=== PATIENT | male | born 1940 | race Caucasian/White ===

== ENCOUNTER 2018-12-08 07:29 | Emergency (ER) | payer MEDICARE, OTHER ==
--- NOTE | 2018-12-08 07:49 | EDM.PDOC ---
<Dedra Loo - Last Filed: 12/08/18 09:04> ED HPI GENERAL MEDICAL PROBLEM - General Chief Complaint: Respiratory Problem Stated Complaint: AMBULANCE Time Seen by Provider: 12/08/18 08:00 - Related Data Allergies Allergy/AdvReac Type Severity Reaction Status Date / Time venom-honey bee Allergy Swollen Verified 12/08/18 10:24 [bee venom (honey bee)] Tongue venom-wasp protein Allergy Swollen Verified 12/08/18 10:24 [wasp venom protein] Tongue Home Meds: Home Meds Chlorthalidone 25 mg PO DAILY 05/16/15 [History] EPINEPHrine [Epipen] 0.3 ml SQ ASDIRECTED 05/16/15 [History] Furosemide 20 mg PO DAILY 05/16/15 [History] Levothyroxine 25 mcg PO ACBREAKFAST 05/16/15 [History] Potassium Chloride [Klor-Con M10] 40 meq PO QID 05/16/15 [History] Folic Acid 1 mg PO DAILY 06/14/18 [History] Levofloxacin 500 mg PO DAILY 06/14/18 [History] Ondansetron HCl [Ondansetron] 8 mg PO ASDIRECTED PRN 06/14/18 [History] Prochlorperazine Maleate [Compazine] 10 mg PO DAILY PRN 06/14/18 [History] atorvaSTATin [Lipitor] 10 mg PO DAILY 06/14/18 [History] Course - Vital Signs Last Recorded V/S: Last Vital Signs Temp 37.3 C 12/08/18 07:53 Pulse 102 H 12/08/18 07:53 Resp 20 12/08/18 07:53 BP 99/58 L 12/08/18 07:53 Pulse Ox 100 12/08/18 07:53 - Orders/Labs/Meds Labs: Laboratory Tests 12/08/18 12/08/18 12/08/18 Range/Units 08:10 08:13 08:13 WBC 2.8 L (5.0-10.0) 10^3/uL RBC 2.53 L (4.6-6.2) 10^6/uL Hgb 7.4 L (14.0-18.0) g/dL Hct 22.7 L (40.0-54.0) % MCV 89.7 (80-100) fL MCH 29.2 (27.0-34.0) pg MCHC 32.6 L (33.0-35.0) g/dL Plt Count 1 L* (150-450) 10^3/uL Neut % (Auto) 1.4 L (42.2-75.2) % Lymph % (Auto) 52.0 H (20.5-50.1) % [place] % (Auto) 46.2 H (2-8) % Eos % (Auto) 0.0 L (1.0-3.0) % Baso % (Auto) 0.4 (0.0-1.0) % Add Manual Diff Yes Neutrophils % (Manual) 3 L (42-75) % Lymphocytes % (Manual) 25 (20-50) % Monocytes % (Manual) 6 (2-8) % Blast Cells % 66 Hypochromasia 2+ moderate Stomatocytes 1+ slight VBG pH 7.45 H (7.31-7.41) VBG pCO2 41 (41-51) mmHg VBG pO2 36 (35-42) mmHg VBG HCO3 28 H (19-25) mmol/l VBG O2 Saturation 66.7 (60-80) % VBG Base Excess 3.9 H ((-2)-(+3)) mmol/l O2 Delivery Device Non rebr mask Oxygen Flow Rate 8 Sodium 134 L (135-145) mmol/L Potassium 3.3 L (3.6-5.0) mmol/L Chloride 96 L (101-111) mmol/L Carbon Dioxide 26.0 (21.0-31.0) mmol/L Anion Gap 15.3 BUN 14 (7-18) mg/dL Creatinine 0.7 (0.6-1.3) mg/dL Est Cr Clr Drug Dosing 82.63 mL/min Estimated GFR (MDRD) > 60 BUN/Creatinine Ratio 20.00 Glucose 98 (74-105) mg/dL Calcium 9.2 (8.4-10.2) mg/dl Total Bilirubin 1.0 (0.2-1.0) mg/dL AST 15 (10-42) IU/L ALT 7 L (10-60) IU/L Alkaline Phosphatase 63 (42-121) IU/L Total Protein 5.9 L (6.7-8.2) g/dl Albumin 2.6 L (3.2-5.5) g/dl Globulin 3.3 Albumin/Globulin Ratio 0.79 - Re-Assessments/Exams Free Text/Narrative Re-Assessment/Exam: 12/08/18 09:04 TC Diana Ross. Accepting patient for higher care. here states patient was scheduled to go to later today for platelet transfusion but became so SOB required ED visit. Departure - Departure Disposition: DC/Tfer to Acute Hospital 02 Condition: Undetermined Clinical Impression: Thrombocytic leukemia, Hypoxia - Discharge Information Referrals: Reynaldo Sunshine MD [Primary Care Provider] - Forms: ED Department Discharge <Parish Garcia - Last Filed: 12/09/18 10:36> ED HPI GENERAL MEDICAL PROBLEM - General Source of Information: Reports: Patient History Limitations: Reports: No Limitations - History of Present Illness INITIAL COMMENTS - FREE TEXT/NARRATIVE: atient comes emergency department today with complaints of weakness and shortness of breath. 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 He has been struggling over the past couple of weeks with his platelets and he typically feels like this when his platelets get very low. He does have some tightness in his chest. No cough or congestion. No dizziness lightheadedness. no palpitations. No abdominal pain nausea or vomiting. No black or tarry stools.No hematuria. No bruising or swelling to any of his extremities. Past Medical History HEENT History: Reports: Cataract, Hard of Hearing, Impaired Vision Other HEENT History: WEARS CORRECTIVE LENS. BILAT HEARING AIDES Cardiovascular History: Reports: Hypertension Other Cardiovascular History: VARICOSE VEINS Respiratory History: Reports: Sleep Apnea Gastrointestinal History: Reports: Colon Polyp Other Genitourinary History: BLADDER TUMOR; HEMATURIA; Musculoskeletal History: Reports: Back Pain, Chronic, Neck Pain, Chronic, Other (See Below) Other Musculoskeletal History: COMPLETE TEAR OF SUPRASPINATUS; PLANTAR FASCIITIS R & L. DEGENERATIVE DISC DISEASE LUMBOSACRAL. MUSCLE SPASMS Psychiatric History: Reports: None Endocrine/Metabolic History: Reports: Hypothyroidism Other Endocrine/Metabolic History: HYPOTHYRIODISM Hematologic History: Reports: Blood Transfusion(s), Transfusion Reaction Immunologic History: Reports: Immunosuppression Oncologic (Cancer) History: Reports: Other (See Below) Other Oncologic History: MONOCLONAL GAMMOPATHY OF UNKNOWN SIGNIFICANCE. PANCYTOPENIA. HX OF ACUTE MYELOBLASTIC LEUKEMIA. HX OF ANTINEOPLASTIC CHEMOTHERAPY Other Dermatologic History: skin cancer for a long time has has lesions removed...blue light and creams - Infectious Disease History Infectious Disease History: Reports: Measles, Mumps - Past Surgical History Head Surgeries/Procedures: Reports: None HEENT Surgical History: Reports: None Cardiovascular Surgical History: Reports: None Respiratory Surgical History: Reports: None GI Surgical History: Reports: Appendectomy, Colonoscopy, EGD Male Surgical History: Reports: None Endocrine Surgical History: Reports: None Musculoskeletal Surgical History: Reports: None Oncologic Surgical History: Reports: None Dermatological Surgical History: Reports: Other (See Below) Social & Family History - Family History Family Medical History: Noncontributory - Caffeine Use Caffeine Use: Reports: Soda Other Caffeine Use: DIET COKE 1 CAN DAILY ED ROS GENERAL - Review of Systems Review Of Systems: ROS reveals no pertinent complaints other than HPI. ED EXAM, GENERAL - Physical Exam Exam: See Below Exam Limited By: No Limitations General Appearance: Alert, WD/WN, No Apparent Distress, Thin Respiratory/Chest: No Respiratory Distress, Lungs Clear, Normal Breath Sounds, No Accessory Muscle Use, Chest Non-Tender Cardiovascular: Normal Peripheral Pulses, Regular Rate, Rhythm Peripheral Pulses: 2+: Radial (L), Radial (R), Posterior Tibial (L), Posterior Tibial (R), Dorsalis Pedis (L), Dorsalis Pedis (R) GI/Abdominal: Normal Bowel Sounds, Soft, Non-Tender, No Abnormal Bruit Back Exam: Normal Inspection Extremities: Normal Inspection, Normal Range of Motion, Non-Tender, Normal Capillary Refill Neurological: Alert, Oriented, Normal Cognition, No Motor/Sensory Deficits Psychiatric: Normal Affect, Normal Mood Skin Exam: Dry, Intact, No Rash, Cool, Pallor. No: Petechiae Lymphatic: No Adenopathy Course - Vital Signs Last Recorded V/S: Last Vital Signs Temp 37.3 C 12/08/18 07:53 Pulse 102 H 12/08/18 07:53 Resp 20 12/08/18 07:53 BP 99/58 L 12/08/18 07:53 Pulse Ox 100 12/08/18 07:53 - Orders/Labs/Meds Labs: Laboratory Tests 12/08/18 12/08/18 12/08/18 Range/Units 08:10 08:13 08:13 WBC 2.8 L (5.0-10.0) 10^3/uL RBC 2.53 L (4.6-6.2) 10^6/uL Hgb 7.4 L (14.0-18.0) g/dL Hct 22.7 L (40.0-54.0) % MCV 89.7 (80-100) fL MCH 29.2 (27.0-34.0) pg MCHC 32.6 L (33.0-35.0) g/dL Plt Count 1 L* (150-450) 10^3/uL Neut % (Auto) 1.4 L (42.2-75.2) % Lymph % (Auto) 52.0 H (20.5-50.1) % [place] % (Auto) 46.2 H (2-8) % Eos % (Auto) 0.0 L (1.0-3.0) % Baso % (Auto) 0.4 (0.0-1.0) % Add Manual Diff Yes Neutrophils % (Manual) 3 L (42-75) % Lymphocytes % (Manual) 25 (20-50) % Monocytes % (Manual) 6 (2-8) % Blast Cells % 66 Hypochromasia 2+ moderate Stomatocytes 1+ slight VBG pH 7.45 H (7.31-7.41) VBG pCO2 41 (41-51) mmHg VBG pO2 36 (35-42) mmHg VBG HCO3 28 H (19-25) mmol/l VBG O2 Saturation 66.7 (60-80) % VBG Base Excess 3.9 H ((-2)-(+3)) mmol/l O2 Delivery Device Non rebr mask Oxygen Flow Rate 8 Sodium 134 L (135-145) mmol/L Potassium 3.3 L (3.6-5.0) mmol/L Chloride 96 L (101-111) mmol/L Carbon Dioxide 26.0 (21.0-31.0) mmol/L Anion Gap 15.3 BUN 14 (7-18) mg/dL Creatinine 0.7 (0.6-1.3) mg/dL Est Cr Clr Drug Dosing 82.63 mL/min Estimated GFR (MDRD) > 60 BUN/Creatinine Ratio 20.00 Glucose 98 (74-105) mg/dL Calcium 9.2 (8.4-10.2) mg/dl Total Bilirubin 1.0 (0.2-1.0) mg/dL AST 15 (10-42) IU/L ALT 7 L (10-60) IU/L Alkaline Phosphatase 63 (42-121) IU/L Total Protein 5.9 L (6.7-8.2) g/dl Albumin 2.6 L (3.2-5.5) g/dl Globulin 3.3 Albumin/Globulin Ratio 0.79 Departure - Departure Time of Disposition: 11:00 - Assessment/Plan Assessment:: thrombocytopenia leukemia. Plan: transfer to [facility].
[2018-12-08 08:01] VITALS: BP 99/58
[2018-12-08 08:19] LABS: BASE EXCESS VENOUS 3.9 mmol/l ((-2)-(+3)); BICARBONATE,VENOUS 28 mmol/l (19-25); O2 DELIVERY DEVICE NON REBR MASK; O2 SATURATION VENOUS 66.7 % (60-80); PCO2 VENOUS 41 mmHg (41-51); PH,VENOUS 7.45 (7.31-7.41); PO2 VENOUS 36 mmHg (35-42)
[2018-12-08 08:20] LABS: O2 FLOW RATE 8
--- NOTE | 2018-12-08 08:33 | CR ---
Clinical history: 78-year-old male complaining chest pain and shortness of breath. Interpretation: Less than optimal inspiratory effort this male with right supraclavicular central venous infusion catheter and external threat monitoring analyst leads. Normal cardiac silhouette without alveolar edema or dependent pleural effusion (left-sided aortic arch). No lung mass, hilar lymphadenopathy or focal lobar pneumonia. No atelectasis/collapse. No pneumothorax. CONCLUSION: No acute cardiopulmonary abnormality.
[2018-12-08 08:40] LABS: ANION GAP 15.3; CHLORIDE,CL 96 mmol/L (101-111); SODIUM,NA 134 mmol/L (135-145)
== END 2018-12-08 10:55 ==
LOC: DL.ED 07:29
DX: C92.00 Acute myeloblastic leukemia, not having achieved remission (principal); D69.6 Thrombocytopenia, unspecified; I10 Essential (primary) hypertension; E03.9 Hypothyroidism, unspecified; Z91.030 Bee allergy status; Z79.899 Other long term (current) drug therapy; Z87.891 Personal history of nicotine dependence
CPT/HCPCS: 36415; 71045; 80053; 82803; 85025; 99285